=== PATIENT | female | born 1985 | race African-American/Black ===

== ENCOUNTER 2020-06-14 11:26 | Emergency (ER) | payer OTHER, SELFPAY ==
[2020-06-14 12:45] LABS: Hemoglobin 14.7 g/dL (12.0-16.0); Mean Corpuscular HGB CONC 30.7 g/dL (32.0-36.0); Mean Corpuscular Hemoglobin 29.6 pg (27.0-31.0); Mean Corpuscular Volume 96.4 fL (78.0-98.0); Mean Platelet Volume 9.2 fL (7.4-10.4); Platelet Count 238 thou/uL (130-400); RBC Distribution Width 12.6 % (11.5-14.5); Red Blood Cell (RBC) Count 4.96 mill/uL (4.20-5.40); White Blood Cell (WBC) Count 6.5 thou/uL (4.8-10.8)
[2020-06-14] MEDS ORDERED: Sodium Chloride 0.9% 1,000 ML IV SCH (12:45)
[2020-06-14] MEDS ORDERED: Lidocaine 2% Viscous Solution 10 ML, Aluminum & Magnesium Hydroxide 30 ML SSW SCH (12:45)
[2020-06-14] MEDS ORDERED: Ondansetron PF 4 MG/2 ML Vial IVP SCH (12:45)
[2020-06-14] MEDS ORDERED: Mag-Al Plus 1200 MG/1200 MG/120 MG/30 ML UDCUP ONE (12:50)
[2020-06-14] MEDS ORDERED: Ondansetron PF 4 MG/2 ML Vial ONE (12:50)
[2020-06-14] MEDS ORDERED: Lidocaine Viscous Sol 2% 15 ml UD Cup ONE (12:50)
[2020-06-14 12:56] LABS: ALT (SGPT) 18 U/L (8-55); AST (SGOT) 17 U/L (5-34); Albumin 4.5 g/dL (3.5-5.0); Alkaline Phosphatase 57 U/L (40-110); Anion Gap 16 mmol/L (10-20); BUN (Urea Nitrogen) 13 mg/dL (7.0-18.7); Bilirubin, Total 0.5 mg/dL (0.2-1.2); Calc. Creatinine Clearance 0 mL/min (70-130); Calcium 9.3 mg/dL (7.8-10.44); Carbon Dioxide 24 mmol/L (22-29); Chloride 106 mmol/L (98-107); Estimated GFR-MDRD Greater than 90; Globulin 2.6 g/dL (2.4-3.5); Glucose 75 mg/dL (70-105); Lipase 14 U/L (8-78); Protein, Total 7.1 g/dL (6.0-8.3); Sodium 142 mmol/L (136-145)
[2020-06-14 13:01] LABS: Eosinophils 3 % (0-10); Lymphocytes 32 % (21-51); MDiff Complete? YES; Monocytes 10 % (0-10); Neutrophil 54 % (42-75); Platelet Morphology Comment Appears Adequate; Reactive Lymphocytes 1 % (0-10)
[2020-06-14 13:29] LABS: Bilirubin Negative (Negative); Blood, Urine Negative (Negative); Clarity Cloudy (Clear); Glucose, Urine (Dipstick) Negative (Negative); Ketone, Urine Negative (Negative); Leukocyte Negative (Negative); Nitrite Negative (Negative); Protein, Urine (Dipstick) Negative (Neg-Trace); Specific Gravity, Urine 1.025 (1.005-1.030); Urobilinogen 0.2 mg/dL (Less than 2); pH, Urine 8.5 (5.0-9.0)
--- NOTE | 2020-06-14 16:26 | RAD ---
PORTABLE CHEST: Date: 06/14/2020 An AP portable film at 1241 hours is compared with the 07/22/2019 study. The heart is normal in size and the lungs are clear. No infiltrate or effusion seen. There is no vasc ular congestion or edema. The mediastinum appears normal. IMPRESSION: Stable exam showing no acute findings. POS: HOME
[2020-06-15 16:24] LABS: SARS-CoV-2 MS2 Positive; SARS-CoV-2 N Gene Negative; SARS-CoV-2 S Gene Negative; SARS-CoV-2 by NAA Not Detected (NotDetected); SARS-CoV-2 orf1ab Negative
== END 2020-06-14 14:49 | disposition home or self-care (01) ==
LOC: BURERS 11:26
DX: R10.13 Epigastric pain (principal); Z20.828 Contact with and (suspected) exposure to other viral communicable diseases; J45.909 Unspecified asthma, uncomplicated; F17.290 Nicotine dependence, other tobacco product, uncomplicated
CPT/HCPCS: 71045; 80053; 81003; 82274; 83690; 84484; 85025; 87635; 93005; J2405; U0003